=== PATIENT | male | born 1975 | race Caucasian/White ===

== ENCOUNTER → 2022-03-01 15:53 | Outpatient (CLI) | payer OTHER, SELFPAY ==
--- NOTE | ~2022-03-01 | XR_ITS ---
XR ankle RT min 3V DATE: 03/01/2022 16:13 INDICATION: Acute right ankle pain TECHNIQUE: 4 views COMPARISON: None FINDINGS: There is mild to moderate lateral soft tissue swelling of the ankle. Ankle joint effusion i s suggested. No fracture or dislocation of the ankle or disruption of the ankle mortise is detected. No periosteal reaction or bone destruction. IMPRESSION: Mild to moderate lateral soft tissue swelling of the ankle and suggestion of ankle joint effusion Reviewed, dictated and finalized at location A. IMPRESSION: Mild to moderate lateral soft tissue swelling of the ankle and sugg estion of ankle joint effusion
== END ==
PROVIDERS: PCP Internal Medicine; Visit Provider Internal Medicine
DX: M25.571 Pain in right ankle and joints of right foot (principal); M79.89 Other specified soft tissue disorders
CPT/HCPCS: 73610